=== PATIENT | female | born 1985 | race Caucasian/White ===

== ENCOUNTER 2017-02-16 07:56 | Emergency (ER) | payer OTHER ==
[~2017-02-16] VITALS: Ht 162.6 cm; Wt 55.0 kg
[2017-02-16 08:00] VITALS: Ht 162.6 cm; Wt 55.0 kg
--- NOTE | 2017-02-16 08:23 | ERA ---
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 Symptoms have persisted over the past 3 days. Patient denies any pain, dysuria, hematuria, change in the color of the urine, back pain, recent illness. Patient does have a history of a tooth that she takes antibiotics for. History is unreliable for antibiotic use. Patient states there is been more so on the right side and that her bad tooth is on the left side and is a chronic condition that is well kept. Patient denies any current use of medications or any possible environmental factors causing facial edema. There are no other associated manifestations or complaints at this time. ROS All systems reviewed and are negative except as per history of present illness. Allergies Allergies: Coded Allergies: No Known Allergy (Unverified , 02/16/17) PMhx/Soc Medical and Surgical Hx: pt denies Medical Hx, pt denies Surgical Hx Hx Alcohol Use: No Hx Substance Use: No Hx Tobacco Use: No Smoking Status: Never smoker Physical Exam Vitals Vital Signs Date Time Temp Pulse Resp B/P Pulse Ox O2 Delivery O2 Flow Rate FiO2 02/16/17 08:00 98.7 86 18 105/59 100 Physical Exam Const: Well-appearing 31-year-old female presenting with her . Head: Atraumatic Eyes: Normal Conjunctiva ENT: External maxillary facial swelling not extending beyond the angle of the left. No swelling in the oral cavity. Mucous membranes are moist and pink. Normal External Ears, Nose. Neck: Full range of motion..~ No meningismus. Resp: Clear to auscultation bilaterally. Equal chest expansion bilaterally. No tripoding or wheezing/stridor. Cardio: Regular rate and rhythm, no murmurs Abd: Soft, non tender, non distended. Normal bowel sounds Skin: No petechiae or rashes Back: No midline or flank tenderness Ext: No cyanosis, or edema Neur: Awake and alert Psych: Normal Mood and Affect Results 24 hrs Laboratory Tests Test 02/16/17 08:20 Urine Color LT. YELLOW Urine Clarity CLEAR Urine pH 5.5 Urine Specific [place] 1.015 Urine Ketones NEGATIVE Urine Nitrite NEGATIVE Urine Bilirubin NEGATIVE Urine Urobilinogen 0.2 E.U./dL Urine Leukocyte Esterase 1+ Urine Microscopic RBC NONE SEEN/HPF Urine Microscopic WBC 2-5/HPF Urine Squamous Epithelial Cells FEW Urine Bacteria FEW Urine Hemoglobin NEGATIVE Urine Glucose NEGATIVE% Urine Total Protein NEGATIVE Current Medications Medications (Trade) Dose Ordered Sig/Jeanne Route PRN Reason Start Time Stop Time Status Last Admin Dose Admin Diphenhydramine HCl (Benadryl) 25 mg ONCE ONCE PO 02/16/17 08:30 02/16/17 08:31 DC 02/16/17 08:35 Procedures/MDM Patient is a 31-year-old female is complaining of painless facial swelling in the maxillary area. The swelling does not involve the oral mucosa and at this time I have no reason to suspect endangerment of the airway. Went ahead and got a urine to evaluate for glomerulonephritis and . Patient is sexually active. There is after administration of Benadryl reevaluated the patient and there was decreased swelling. Most likely diagnosis is allergic reaction from unknown cause. Urinalysis was unremarkable. At this time a little suspicion for endangerment of the airway or infection. There is no swelling of the mouth no stridor difficulty breathing and no change in voice. I have little suspicion for peritonsillar abscess, Dirk's angina or endangerment of the airway. Patient will be discharged with Benadryl, Medrol Dosepak and an EpiPen in case swelling increases in subsequent days prior to being evaluated by her primary care provider.. Patient will be given discharge instructions with return precautions. Departure Diagnosis: Primary Impression: Allergic reaction Qualified Code: T78.40XA - Allergic reaction, initial encounter Condition: Stable Additional Instructions: Follow up with your PCP within the next 1-3 days for a more thorough evaluation and a possible referral to a specialist. Return the the emergency department immediately if symptoms worsen or change. If you have any questions regarding medications, ask your pharmacist or us before you leave. If any adverse reactions occur while taking your medications, discontinue the treatment and return to the emergency department immediately. Take your medications as directed, and complete the entire course of treatment. AUTUMN GARNER PA-C February 16, 2017 08:23
[2017-02-16] MEDS ORDERED: DIPHENHYDRAMINE 25 MG CAP PO ONE (08:30)
[2017-02-16 08:38] LABS: URINE BILIRUBIN (Dip) NEGATIVE (NEGATIVE); URINE BLOOD (Dip) NEGATIVE (NEGATIVE); URINE COLOR LT. YELLOW (YELLOW); URINE GLUCOSE (Dip) NEGATIVE (NEGATIVE); URINE KETONES (Dip) NEGATIVE (NEGATIVE); URINE LEUKOCYTE ESTERASE (Dip) 1+ (NEGATIVE); URINE NITRITE (Dip) NEGATIVE (NEGATIVE); URINE TOTAL PROTEIN (Dip) NEGATIVE (NEGATIVE); URINE UROBILINOGEN (Dip) 0.2 E.U./dL (0.1-1.0)
[2017-02-16 08:39] LABS: ADD UMIC YES
[2017-02-16 09:16] LABS: BACTERIA,URINE FEW; SQUAMOUS EPITHELIAL CELL,UR FEW; URINE RBCS NONE SEEN /HPF (0)
[2017-02-16] MEDS ORDERED: MED4DP PO (09:39)
[2017-02-16] MEDS ORDERED: EPIN0.3P4 INJ (09:39)
[2017-02-16] MEDS ORDERED: BEN25 PO (09:39)
== END 2017-02-16 09:44 | disposition home or self-care (01) ==
LOC: FTE 07:56
DX: R60.0 Localized edema (principal)
CPT/HCPCS: 81001; 81003; Z7502; Z7610; 99283